=== PATIENT | male | born 1945 | race Caucasian/White ===

== ENCOUNTER 2020-10-04 11:08 | Outpatient (NON) | payer MEDICARE, SELFPAY ==
[2020-10-04 23:40] LABS: SARS-CoV-2 RNA PCR Negative
== END 2020-10-04 11:09 ==
PROVIDERS: PCP Family Medicine; Visit Provider Physician Assistant Medical
DX: R19.7 Diarrhea, unspecified (principal); R68.83 Chills (without fever); Z20.828 Contact with and (suspected) exposure to other viral communicable diseases
CPT/HCPCS: 87635; C9803; U0003

== ENCOUNTER 2020-10-16 13:46 | Outpatient (CLI) | payer MEDICARE, SELFPAY ==
--- NOTE | 2020-10-16 14:27 | ECG_ITS ---
Measurements Intervals [place] Rate: 74 P: 63 [place]: 176 QRS: 79 QRSD: 106 T: 51 QT: 361 QTc: 401 Interpretive Statements SINUS RHYTHM NORMAL ECG Electronically Signed On 10-16-2020 15:04:38 MESS COOK by Doug Crane D.O.
[2020-10-16 14:47] LABS: Basophils Absolute Auto 0.1 K/mm3 (0.0-0.1); Basophils Percent Auto 0.9 % (0.2-1.2); Eosinophils Absolute Auto 0.3 K/mm3 (0-0.3); Eosinophils Percent Auto 5.3 % (0-4.4); Hematocrit 47.3 % (42.0-52.0); Immature Granulocyte Absolute 0.04 K/mm3 (0.00-0.031); Immature Granulocyte Percent A 0.6 % (0-0.5); Lymphocytes Absolute Auto 1.62 K/mm3 (0.9-3.2); Lymphocytes Percent Auto 25.3 % (18.3-44.2); Mean Corpuscular HGB Conc 33.8 g/dl (32-36); Mean Corpuscular Hemoglobin 31.3 pg (26-34); Mean Corpuscular Volume 92.4 fl (80-100); Mean Platelet Volume 8.5 fl (7.4-10.4); Monocytes Absolute Auto 0.6 K/mm3 (0.1-0.6); Monocytes Percent Auto 9.7 % (2.6-8.5); Neutrophils Absolute Auto 3.7 K/mm3 (1.3-6.7); Neutrophils Percent Auto 58.2 % (45.5-73.1); Platelet Count Result 286 k/mm3 (150-375); Red Blood Count 5.12 M/mm3 (4.6-6.20); Red Cell Distribution Width 12.1 % (11.5-14.5); White Blood Count 6.4 K/mm3 (4.5-10.0)
== END 2020-10-16 13:47 | disposition home or self-care (01) ==
LOC: ANHSURGERY 13:48
PROVIDERS: PCP Family Medicine; Visit Provider Orthopaedic Surgery
DX: Z01.818 Encounter for other preprocedural examination (principal); M17.12 Unilateral primary osteoarthritis, left knee
CPT/HCPCS: 36415; 85025; 93005

== ENCOUNTER 2020-10-21 02:08 | Outpatient (CLI) | payer MEDICARE, SELFPAY ==
[2020-10-21 19:32] LABS: SARS-CoV-2 RNA PCR Negative
== END 2020-10-21 02:09 | disposition home or self-care (01) ==
LOC: ANHCOVIDDT 02:08
PROVIDERS: PCP Family Medicine; Visit Provider Orthopaedic Surgery
DX: Z01.812 Encounter for preprocedural laboratory examination (principal); Z20.822 Contact with and (suspected) exposure to COVID-19
CPT/HCPCS: C9803; U0003

== ENCOUNTER 2020-10-24 00:31 | Day surgery (SDC) | payer MEDICARE, SELFPAY ==
[2020-10-16 14:27] VITALS: BP 169/83; PULSE 79; RESP 16; TEMP 36.7; O2SAT 100; BMI 25.9
[2020-10-24] VITALS (9 sets, daily range): BP systolic 106–168; BP diastolic 53–98; PULSE 70–103; RESP 10–20; TEMP 36.6–36.8; O2SAT 95–100
--- NOTE | ~2020-10-24 | XR_ITS ---
EXAMINATION: XR knee LT 2V DATE: 10/24/2020 13:51 INDICATION: Left knee medial compartment arthroplasty. Postop. TECHNIQUE: 2 views of left knee were obtained. COMPARISON: Left knee radiographs 06/09/2020 FINDINGS: There is a medial compartment arthroplasty in near-anatomic alignment. No fracture. There a re tiny osteophytes in the lateral and patellofemoral compartments. There is gas in the knee joint an d soft tissues, consistent with recent surgery. IMPRESSION: 1. Medial compartment arthroplasty in near-anatomic alignment. 2. Mild osteoarthritis of the lateral and patellofemoral compartments. Reviewed, dictated and finalized at location A. RNET MARKETING COORDINATOR
[2020-10-24] MEDS: ACETAMINOPHEN 500 MG TABLET 1000 MG PO (10:31)
[2020-10-24] MEDS: LACTATED RINGERS 1,000 ML 30 ML IV CONT ×2 (10:31→13:38)
--- NOTE | 2020-10-24 10:37 | WPDANESEPPF ---
Anes - Initial Pre Proc Eval Procedure: Operation Date: 10/24/20 12:00 Proposed Procedures p Left Partial Knee Arthroplasty - Micah Nguyen MD Date/Time: 10/24/20 10:37 Surgeon: Micah Nguyen MD Pre Op Diagnosis: Primary OA Left Knee Patient Data Age: 75 Gender: M Height: 6 ft Weight: 84.4 kg Last Vital Signs Temp 36.8 C 10/24/20 10:11 Pulse 77 10/24/20 10:11 Resp 16 10/24/20 10:11 BP 168/98 H 10/24/20 10:11 Pulse Ox 98 10/24/20 10:11 Allergies Allergy/AdvReac Type Severity Reaction Status Date / Time No Known Allergies Allergy Verified 10/24/20 10:07 Home Medications Medication Instructions Recorded Confirmed Type finasteride 5 mg tablet 5 mg PO DAILY #90 tablet 12/20/19 10/24/20 Rx levothyroxine 50 mcg tablet 50 mcg PO DAILY #90 tablet 12/20/19 10/24/20 Rx tamsulosin 0.4 mg capsule 0.4 mg PO DAILY #90 cap 12/20/19 10/24/20 Rx xkiksjlo-beu-ekkta-vit K-lycop 1 tablet PO DAILY 10/16/20 10/24/20 History [Men's 50 Plus Multivitamin] Patient hx anesthesia problems: none Family hx anesthesia problems: none PMFSH Past Medical History Medical History Benign prostatic hyperplasia with nocturia Hepatitis C antibody test negative (12/21/16) Hernia (~2009) Hypercholesterolemia Hypothyroidism Osteoarthritis of both knees Prediabetes Prehypertension Stage 3 chronic kidney disease Surgical History Surgical History History of appendectomy (~1984) Family History Family History Mother Depression Family history of Parkinson's disease Patient's mother is , Onset Age: 82 Father Patient's father is , Onset Age: 83 Other No family history of cardiovascular disease Social History Social History Smoking status: Never smoker Smoking end date: 10/13/70 Alcohol intake: never Living arrangements: with family Spiritual care concerns: No Anes - Eval Final PreProcedure Day of Procedure 10/24/20 10:37 Patient weight: normal Heart: regular rate and rhythm Lungs: clear to auscultation Airway: Mallampati scale class 1 Neurological: alert and oriented Last oral intake: >/= 8 hours ASA classification: II Emergent: no Anesthetic plan: proceed Anesthesia type and monitoring: general ETT and standard monitoring Informed Consent: The patient's anesthetic plan and its attendant risks and benefits were discussed with the patient/family/POA. Questions were solicited and answers provided to the satisfaction of the patient/family/POA.
--- NOTE | 2020-10-24 11:05 | WPDHPUPDATE1 ---
History and Physical Update Update Date/Time: 10/24/20 11:05 History and Physical has been reviewed, including an updated exam of the patient. There are NO changes in the patient's condition. Risks, benefits, and alternatives have been discussed and questions answered. Patient agrees to proceed with procedure.
[2020-10-24] MEDS: TRANEXAMIC ACID 1,000MG/ISO100 1,000 MG/100 ML BAG 200 MG IVPB (11:25)
[2020-10-24] MEDS: ceFAZolin 2 GM/D5W 50 ML 2 GM/50 ML BAG IVPB (11:39)
--- NOTE | 2020-10-24 16:31 | P.OP_ITS ---
Procedure Note - Detailed Date of procedure: 10/24/20 Pre-op diagnosis: Primary OA Left Knee Post-op diagnosis: same Procedure performed: Partial knee arthroplasty, medial compartment. Description of procedure: Large stature. Severe wear in the medial compartment. ACL and lateral compartment intact. Standard bony resections. Minus 2 distal femoral cutting block. Implants: [employer] PKR X3 system tibial insert size #6, 8 mm thickness, femoral component size 5. Tibial base tibial base plate size 6. Anesthesia: GETA and regional (subsartorial block.) Surgeon: Micah Nguyen MD Estimated blood loss (mL): 50 Drains: No Complications: None Findings: Physician judicial administrative assistant, Ann-Marie Diaz PA-C, required for surgery; including patient positioning, draping, tissue retraction, maintaining instrument position, cement removal, wound closure, and dressing placement. Operative details: The patient was given a general anesthetic. Preoperative antibiotics were given. The knee was prepped and draped in the usual sterile fashion. A longitudinal incision was created along the medial aspect of the patellar tendon. A minimally invasive optimized mid vastus approach was complet ed. No medial release was taken. The external alignment guide was used to cut the tibia with anatomic posterior slope. A 4 millimeter resection was taken. The spacer block technique was utilized to measure flexion and extension gaps after the osteophytes were removed. The difference was used to calculate the distal resection. The distal cutting block was utilized to cut the distal femur. The AP and chamfer block was utilized for this last cuts. The femur and tibia were sized. Range of motion and gap balancing was assessed. This was tested with the 1.5 millimeter spacer. The bony surfaces were cleaned with lavaged. Lug holes were drilled. The real components were cemented into position. Excess cement was carefully removed. The tourniquet was released. Meticulous hemostasis was maintained. The wound was closed with interrupted 1 Vicryl suture followed by a running 0 Quill suture and 2-0 Quill suture. Steri-Strips are placed in the skin the patient was extubated and brought to recovery room in stable condition. There were no complications.
--- NOTE | 2020-10-24 16:35 | SUR.PHASEII ---
1545 - Ignacia PT at chair side with training
== END 2020-10-24 16:20 | disposition home or self-care (01) ==
PROVIDERS: PCP Family Medicine; Visit Provider Orthopaedic Surgery
PROC: (CPT 27446; principal; 2020-10-24 12:00)
DX: M17.12 Unilateral primary osteoarthritis, left knee (principal); N40.1 Benign prostatic hyperplasia with lower urinary tract symptoms; R35.1 Nocturia; E78.00 Pure hypercholesterolemia, unspecified; E03.9 Hypothyroidism, unspecified; N18.30 Chronic kidney disease, stage 3 unspecified; R73.03 Prediabetes
CPT/HCPCS: 27446; 36415; 73560; 85025; 93005; 97110; 97161; A9270; C1713; C1776; C9803; J0171; J0330; J0690; J1100; J1170; J1885; J2250; J2270; J2370; J2405; J2704; J2795; J3010; J7120; U0003

== ENCOUNTER 2020-12-13 08:00 | Outpatient (CLI) | payer MEDICARE, SELFPAY | END 2020-12-13 08:01 | disposition home or self-care (01) | PROVIDERS: PCP Family Medicine | DX: Z23 Encounter for immunization (principal) | CPT/HCPCS: 0001A; 91300 ==

== ENCOUNTER 2021-01-03 08:09 | Outpatient (CLI) | payer MEDICARE, SELFPAY | END 2021-01-03 08:10 | disposition home or self-care (01) | LOC: ANHCOVIDVC 08:09 | PROVIDERS: PCP Family Medicine | DX: Z23 Encounter for immunization (principal) | CPT/HCPCS: 0002A; 91300 ==

== ENCOUNTER → 2021-07-05 01:47 | Outpatient (CLI) | payer MEDICARE, SELFPAY ==
[2021-07-05 17:06] LABS: SARS-CoV-2 RNA PCR Negative
== END ==
PROVIDERS: PCP Family Medicine; Visit Provider Family Medicine
DX: Z20.822 Contact with and (suspected) exposure to COVID-19 (principal)
CPT/HCPCS: C9803; U0003; U0005

== ENCOUNTER → 2021-09-13 04:08 | Outpatient (CLI) | payer MEDICARE, SELFPAY ==
[2021-09-13 17:37] LABS: SARS-CoV-2 RNA PCR Negative
== END ==
PROVIDERS: PCP Family Medicine; Visit Provider Physician Assistant
DX: Z20.822 Contact with and (suspected) exposure to COVID-19 (principal)
CPT/HCPCS: C9803; U0003; U0005

== ENCOUNTER 2022-03-25 08:37 | Outpatient (CLI) | payer MEDICARE, SELFPAY ==
--- NOTE | ~2022-03-25 | MR_ITS ---
EXAMINATION: MR brain/brain stem wo con DATE: 03/25/2022 10:49 INDICATION: Syncope and collapse. TECHNIQUE: Magnetic resonance imaging (MRI) of the brain and brainstem was performed without intraven ous contrast. COMPARISON: None. FINDINGS: There are scattered areas of nonspecific increased T2-weighted signal intensity in the cere bral white matter. There is no intracranial hemorrhage, acute infarction, or abnormal intracranial ma ss lesion. The ventricles are normal in size. There is mucosal thickening in the paranasal sinuses. T he mastoid air cells are normal. The orbits are normal. IMPRESSION: 1. Moderate nonspecific cerebral white matter disease, which likely represents chronic small vessel i schemic disease. Reviewed, dictated and finalized at location B. IMPRESSION: 1. Moderate nonspecific cerebral white matter disease, which likely represents chronic small vessel ischemic disease.
--- NOTE | 2022-03-25 11:24 | WPDNEUROLOGY ---
Neurology EEG Report General Information Date of Study: 03/25/22
--- NOTE | 2022-03-25 11:27 | WPDNEUROLOGY ---
Neurology EEG Report General Information Date of Study: 03/25/22 IMPRESSION discard
--- NOTE | 2022-03-25 11:42 | P.NEURO_ITS ---
Neurology EEG Report General Information Date of Study: 03/25/22 TEST EEG DIAGNOSIS syncope and collapse CONDITION OF RECORDING awake drowsy and sleep EEG NUMBER [id number] CLINICAL HISTORY patient reports he had 1 episode of losing consciousness. No warning sign before and felt fine afterwards. EEG DESCRIPTION basic resting occipital frequency consists of large amount of well-organized medium voltage 8 to 9 hertz per 2nd alpha admixed with minimal amount of low- voltage 15 to 18 hertz per 2nd beta. During drowsiness, low-voltage beta activity seen diffusely admixed with waxing and waning posterior alpha rhythm. Bilateral symmetrical sleep activity seen during sleep. Hyperventilation not done. Photic stimulation produced normal drive. Non paroxysmal. Nonfocal. Nonlateralizing. IMPRESSION Normal
== END 2022-03-25 08:38 | disposition home or self-care (01) ==
PROVIDERS: PCP Family Medicine; Visit Provider Family Medicine
DX: R55 Syncope and collapse (principal); R90.82 White matter disease, unspecified
CPT/HCPCS: 70551; 95816

== ENCOUNTER → 2022-06-21 02:14 | Outpatient (CLI) | payer MEDICARE, SELFPAY ==
[2022-06-21 10:36] LABS: SARS-CoV-2 RNA PCR Positive
== END ==
PROVIDERS: PCP Family Medicine; Visit Provider Family Medicine
DX: U07.1 COVID-19 (principal)
CPT/HCPCS: C9803; U0003; U0005

== ENCOUNTER 2023-06-12 11:54 | Outpatient (CLI) | payer MEDICARE, SELFPAY ==
--- NOTE | 2023-06-12 12:44 | ECG_ITS ---
Measurements Intervals [place] Rate: 80 P: 64 [place]: 191 QRS: 72 QRSD: 105 T: 45 QT: 364 QTc: 420 Interpretive Statements SINUS RHYTHM WITH OCCASIONAL VENTRICULAR PREMATURE COMPLEXES OTHERWISE UNREMARKABLE ECG COMPARED TO ECG 10/16/2020 15:00:59 PVC IS NOTED Electronically Signed On 06-12-2023 14:38:45 CDT by Del Garcias M.D.
[2023-06-12 13:23] LABS: Basophils Absolute Auto 0.1 K/mm3 (0.0-0.1); Eosinophils Absolute Auto 0.5 K/mm3 (0-0.3); Eosinophils Percent Auto 6.6 % (0-4.4); Hematocrit 47.8 % (42.0-52.0); Hemoglobin 15.8 g/dL (14.0-18.0); Immature Granulocyte Absolute 0.02 K/mm3 (0.00-0.031); Immature Granulocyte Percent A 0.3 % (0-0.5); Lymphocytes Absolute Auto 2.17 K/mm3 (0.9-3.2); Lymphocytes Percent Auto 30.5 % (18.3-44.2); Mean Corpuscular HGB Conc 33.1 g/dl (32-36); Mean Corpuscular Hemoglobin 30.1 pg (26-34); Monocytes Absolute Auto 0.7 K/mm3 (0.1-0.6); Monocytes Percent Auto 9.4 % (2.6-8.5); Neutrophils Absolute Auto 3.7 K/mm3 (1.3-6.7); Neutrophils Percent Auto 52.2 % (45.5-73.1); Platelet Count Result 231 k/mm3 (150-375); Red Blood Count 5.25 M/mm3 (4.6-6.20); Red Cell Distribution Width 12.1 % (11.5-14.5); White Blood Count 7.1 K/mm3 (4.5-10.0)
[2023-06-12 13:42] LABS: Anion Gap 10 mmol/L (8-16); Blood Urea Nitrogen 21 mg/dL (9-20); Calcium 9.2 mg/dL (8.4-10.2); Carbon Dioxide 23 mmol/L (22-30); Chloride 103 mmol/L (98-107); Estimated Glomerular Filt Rate 59; Glucose 92 mg/dL (65-110); Potassium 4.2 mmol/L (3.4-5.0); Sodium 136 mmol/L (137-145)
== END 2023-06-12 11:55 | disposition home or self-care (01) ==
LOC: ANHSURGERY 11:58
PROVIDERS: Anesthesiology; PCP Family Medicine; Visit Provider Orthopaedic Surgery
DX: Z01.812 Encounter for preprocedural laboratory examination (principal); Z01.810 Encounter for preprocedural cardiovascular examination; M17.11 Unilateral primary osteoarthritis, right knee; R73.03 Prediabetes
CPT/HCPCS: 36415; 80048; 85025; 93005

== ENCOUNTER 2023-07-11 01:09 | Day surgery (SDC) | payer MEDICARE, SELFPAY ==
[2023-06-12 12:02] VITALS: BMI 25.7
--- NOTE | 2023-06-12 12:17 | PC.NURSE ---
Addendum entered by Vickie Barnett RN 06/12/23 12:36: LAST DOSE 07/07/23 NAPROXEN Original Note: Report to the Outpatient Waiting Room, entrance under the green pavilion located off [facility], at time __1000 on date __07/11/23 . Planned Procedure Time: __1200 . Time changes happen often and if your time is changed the preop area will call you the afternoon before. - You and your visitor will be asked to self-screen and do not enter if you have any COVID symptoms. - A mask is optional within the hospital at this time. Patients may have clear liquids (water, carbonated beverages, clear teas, apple juice) until 3 hours prior to surgery with a maximum of 20 ounces. - No food from midnight until time of surgery - Infants may have breast milk until 4 hours before surgery, infant formula 6 hours prior to surgery. - Children will be allowed to drink immediately following surgery. If applicable, please bring a bottle or sippy cup to assist with drinking. Juice, water, soda, and popsicles are readily available. For infants on formula, please bring formula the day of surgery. Pacifiers are allowed. Take the following medications with a SIP of water the morning of surgery: ___LEVOTHYROXINE DO NOT STOP ANY OF YOUR OTHER PRESCRIPTION MEDICATIONS PRIOR TO SURGERY ?EXCEPT THE FOLLOWING Medications to discontinue per physician ____HOLD_NAPROXEN 7 DAYS PRE OP PER DR VEGA. LAST DOSE __07/11/23 TOTAL JOINT CLASS 07/02/23 AT 10 AM Please no make-up, nail yoruba, hairspray, perfume, deodorant, or body powder the day of surgery. No jewelry (including any body piercings) or valuables the day of surgery, leave them at home. Please take a shower or bath the night before, or the morning of, surgery with an antibacterial soap. Wear comfortable, loose fitting clothing. Children are encouraged to wear pajamas. - Jewelry must be removed prior to entering the operating room. Rings and piercings that are not removed may be cut off. - The hospital will not accept responsibility for valuables. - Please leave all valuables, including medications, at home the day of surgery. If you are going home after surgery, a licensed city bus driver must drive you home. - NO public transportation without another adult if you receive anesthesia. - We recommend that an adult stay with you for 24 hours following discharge. - We also recommend that you do not drive, make important decision, drink alcoholic beverages, or take any drugs that were not prescribed by your health care provider for at least 24 hours after your discharge time. Follow any additional instructions given to you from your surgeon. If you or anyone in your household have experienced Covid symptoms in the past week, please notify your surgeon or the nurse liaison at the phone number below for possible testing. VERBAL AND WRITTEN instructions given to _PATIENT and asked if any additional questions and then verbalized understanding. Patient advised to call surgeon office or pre surgery nurse liaison [phone] if any additional questions.
[2023-06-12 12:41] VITALS: BP 134/85; PULSE 84; RESP 18; TEMP 36.8; O2SAT 97
[2023-07-11] VITALS (8 sets, daily range): BP systolic 99–148; BP diastolic 52–91; PULSE 75–93; RESP 12–19; TEMP 36.3–36.7; O2SAT 97–100
--- NOTE | ~2023-07-11 | XR_ITS ---
EXAMINATION: [id number] DATE: 07/11/2023 14:43 CDT INDICATION: Right partial knee arthroplasty TECHNIQUE: 2 views right knee FINDINGS: There is a right medial unicompartmental knee arthroplasty in expected position. Subcutane ous gas with fluid and air in the joint are consistent with recent surgery. No evidence of periprosth etic fracture. IMPRESSION: 1. Recent right medial unicompartmental knee arthroplasty. Reviewed, dictated and finalized at location B.
[2023-07-11] MEDS: ACETAMINOPHEN 500 MG TABLET 1000 MG PO (10:45)
[2023-07-11] MEDS: LACTATED RINGERS 1,000 ML 30 ML IV CONT ×2 (10:58→14:16)
[2023-07-11 11:03] LABS: Glucose Point of Care 102 mg/dl (65-105)
--- NOTE | 2023-07-11 11:24 | WPDANESEPPF ---
Anes - Initial Pre Proc Eval Procedure: Operation Date: 07/11/23 12:00 Proposed Procedures p Right Partial Knee Arthroplasty - Micah Nguyen MD Date/Time: 07/11/23 11:24 Surgeon: Micah Nguyen MD Pre Op Diagnosis: right knee arthritis Patient Data Age: 78 Gender: M Height: 1.83 m Weight: 84.4 kg Last Vital Signs Temp 36.7 C 07/11/23 11:19 Pulse 75 07/11/23 11:19 Resp 16 07/11/23 11:19 BP 143/82 H 07/11/23 11:19 Pulse Ox 99 07/11/23 11:19 O2 Del Method Room Air 07/11/23 11:19 Allergies Allergy/AdvReac Type Severity Reaction Status Date / Time No Known Allergies Allergy Verified 07/11/23 10:44 Home Medications Medication Instructions Recorded Confirmed Type levothyroxine 75 mcg tablet 75 mcg PO DAILY #90 tabs 03/20/23 07/11/23 Rx (Synthroid) metformin 500 mg tablet,extended 500 mg PO DAILY #90 tabs 03/20/23 07/11/23 Rx release 24 hr finasteride 5 mg tablet See Rx Instructions .Route 04/25/23 07/11/23 Rx .COMPLEX #100 tabs tamsulosin 0.4 mg capsule 0.4 mg PO DAILY #90 caps 05/08/23 07/11/23 Rx Laboratory Tests 07/11/23 11:00 POC Capillary Glucose 102 mg/dl (65-105) Patient hx anesthesia problems: none Family hx anesthesia problems: none Results Review: All pre-operative results and documents have been reviewed as part of the pre-operative evaluation. [facility] Past Medical History Medical History Benign prostatic hyperplasia with nocturia Cataract COVID-19 (~12/21/21) Deviated nasal septum Enlarged prostate without lower urinary tract symptoms (luts) Hepatitis C antibody test negative (12/21/16) Hernia (~2009) Hypercholesterolemia Hypothyroidism Nocturia Osteoarthritis of both knees Prediabetes Prehypertension Seborrheic keratosis Stage 3 chronic kidney disease Surgical History Surgical History History of appendectomy (~1984) History of partial knee replacement (~10/24/20) Lt Family History Family History Mother Depression Family history of Parkinson's disease Patient's mother is , Onset Age: 82 Father Patient's father is , Onset Age: 83 Other No family history of cardiovascular disease Social History Social History Smoking packs per day: 0.5 Smoking cigarettes per day: 10.0 Years smoked: 1 Smoking pack-years: 0.50 Smoking status: Former smoker Tobacco type: cigarettes Smoking end date: 10/13/65 Alcohol intake: never Lack of Transportation: No Lack of Food: Never True Current Housing: I Have Housing Concerned About Future Housing: No Difficulty Paying Gas/Electric Bills: No Difficulty Paying for Meds: No Currently Unemployed: No Education: Bachelor's Degree Difficulty w/ Childcare or Family Care: No Living arrangements: with family Spiritual care concerns: No Anes - Eval Final PreProcedure Day of Procedure 07/11/23 11:24 Patient weight: normal Heart: regular rate and rhythm Lungs: clear to auscultation Airway: Mallampati scale class 1 Neurological: alert and oriented Last oral intake: >/= 8 hours ASA classification: II Emergent: no Anesthetic plan: proceed Anesthesia type and monitoring: general LMA and standard monitoring Results Review: All pre-operative results and documents have been reviewed as part of the pre-operative evaluation. Informed Consent: The patient's anesthetic plan and its attendant risks and benefits were discussed with the patient/family/POA. Questions were solicited and answers provided to the satisfaction of the patient/family/POA.
[2023-07-11] MEDS: TRANEXAMIC ACID 1,000MG/ISO100 1,000 MG/100 ML BAG 200 MG IVPB (11:45)
--- NOTE | 2023-07-11 12:06 | WPDHPUPDATE1 ---
History and Physical Update Update Date/Time: 07/11/23 12:06 History and Physical has been reviewed, including an updated exam of the patient. There are NO changes in the patient's condition. Risks, benefits, and alternatives have been discussed and questions answered. Patient agrees to proceed with procedure.
[2023-07-11] MEDS: ceFAZolin 2 GM/D5W 50 ML 2 GM/50 ML BAG IVPB (12:34)
--- NOTE | 2023-07-11 14:22 | P.OP_ITS ---
Procedure Note - Detailed Date of Procedure 07/11/23 Pre-op Diagnosis right knee arthritis Post-op Diagnosis Same Procedure Performed Partial knee arthroplasty, right knee, medial compartment. Surgeon Micah Nguyen MD Door Frame Assembler Machine Ann-Marie Jaime PA-C Anesthesia General Findings Severe medial wear. No other abnormal findings. Minus two distal femoral cutting block. Description of Procedure The patient was given a general anesthetic. Preoperative antibiotics were given. The knee was prepped and draped in the usual sterile fashion. A longitudinal incision was created along the medial aspect of the patellar tendon. A minimally invasive optimized mid vastus approach was completed. No medial release was taken. The external alignment guide was used to cut the tibia with anatomic posterior slope. A 4 millimeter resection was taken. The spacer block technique was utilized to measure flexion and extension gaps after the osteophytes were removed. The difference was used to calculate the distal resection. The distal cutting block was utilized to cut the distal femur. The AP and chamfer block was utilized for this last cuts. The femur and tibia were sized. Range of motion and gap balancing was assessed. This was tested with the 1.5 millimeter spacer. The bony surfaces were cleaned with lavaged. Lug holes were drilled. The real components were cemented into position. Excess cement was carefully removed. The tourniquet was released. Meticulous hemostasis was maintained. The wound was closed with interrupted 1 Vicryl suture followed by a running 0 Quill suture and 2-0 Quill suture. Steri-Strips are placed in the skin the patient was extubated and brought to recovery room in stable condition. There were no complications. Physician assistant attorney general, Ann-Marie Jaime PA-C, required for surgery; including patient positioning, draping, tissue retraction, maintaining instrument position, cement removal, wound closure, and dressing placement. Implants [employer] PKR system femur size 5, tibia size 4, 10mm polyethylene insert . One batch Simplex antibiotic cement. Estimated Blood Loss 20 Tourniquet Time 48 Drains No Complications No immediate complications Condition Stable Disposition PACU [facility] Billing Surgery - Charge Forward: Surgery Billing
[2023-07-11 14:42] LABS: Glucose Point of Care 111 mg/dl (65-105)
== END 2023-07-11 16:52 | disposition home or self-care (01) ==
PROVIDERS: PCP Family Medicine; Visit Provider Orthopaedic Surgery
PROC: (CPT 27446; principal; 2023-07-11 12:00)
DX: M17.11 Unilateral primary osteoarthritis, right knee (principal); I12.9 Hypertensive chronic kidney disease with stage 1 through stage 4 chronic kidney disease, or unspecified chronic kidney disease; N18.30 Chronic kidney disease, stage 3 unspecified; D29.1 Benign neoplasm of prostate; E78.00 Pure hypercholesterolemia, unspecified; E03.9 Hypothyroidism, unspecified; R73.03 Prediabetes; Z96.652 Presence of left artificial knee joint; Z87.891 Personal history of nicotine dependence; Z79.84 Long term (current) use of oral hypoglycemic drugs; Z79.1 Long term (current) use of non-steroidal anti-inflammatories (NSAID)
CPT/HCPCS: 27446; 36415; 73560; 80048; 82948; 85025; 93005; 97110; 97161; 97165; 97530; A9270; C1713; C1776; J0171; J0690; J1100; J1170; J1885; J2250; J2270; J2405; J2704; J2795; J3010; J7120

== ENCOUNTER 2023-09-02 08:45 | Outpatient (RCR) | payer MEDICARE, SELFPAY ==
--- NOTE | 2023-07-18 09:23 | OPREHPOC ---
Outpatient Therapy Plan of Care This is a Multidisciplinary Plan of Care that may contain components documented by all disciplines (PT, OT, and ST.) PT Problem 1 PT Problem #1 Knowledge Deficit PT Goal 1 Goal [place] with HEP Target Visit 4 PT Problem 2 PT Problem #2 Pain PT Goal 1 Goal Report no pain greater than 2/10 with transfer activity sit to stand Target Visit 8 PT Problem 3 PT Problem #3 Edema PT Goal 1 Goal Patient will demonstrate 2+cm reduction in joint line girth indicating edema reduction and soft tissue healing to improve knee mobility Target Visit 8 PT Problem 4 PT Problem #4 Impaired Range of Motion PT Goal 1 Goal Patient will achieve terminal R knee extension for full terminal stance of gait Target Visit 8 PT Goal 2 Goal Patient will improve R knee flexion ROM to 120 degrees to assist with stairs and squatting activity Target Visit 8 PT Problem 5 PT Problem #5 Impaired Strength PT Goal 1 Goal Patient will improve R knee extension strength to 5/5 to improve gross knee stability with walking and stair activity
--- NOTE | 2023-07-18 09:23 | PTOPEVAL1 ---
Assessment and note entered by Richard Lobo, PT Evaluation Information Assessment Status Evaluation Diagnosis Right Total Knee Arthroplasty, knee pain, altered gait Onset 07/11/23 Subjective Information Reports that overall he is doing well. He is modified independent with the walker and weaning off of pain medicine. He is having a little trouble sleeping but has been taking pain medicine to help. He has 3 steps to get into home and can maneuver fairly well. Reported Pain Level Pain Score 6: Self Report Assessment PT Clinical Summary Patient presents with typical signs ans symptoms of post operative knee arthroplasty. Has notable edema, weakness, ROM loss, and altered gait. Patient will benefit from skilled therapy to address these deficits for full functional return and christian of gait. Plan of Care Interventions Electrical Stimulation,Gait Training,Hot Pack/Cold Pack,Manual Therapy,Neuro Re-education,Patient/ Caregiver Education,Therapeutic Activities, Therapeutic Exercise PT Services Indicated Yes Treatment Frequency and 2x/week for 4 weeks Duration These treatments will address the objective and functional deficits as defined above. The patient will be advanced safely and appropriately in order for the patient to progress towards his/her prior level of function. Additional exercises will be introduced and as well as a comprehensive home exercise program upon discharge, if needed, ?to ensure carryover of functional gains achieved in the clinic. This treatment plan has been reviewed and agreement upon by the patient.
--- NOTE | 2023-09-02 15:03 | PTOPDC ---
Assessment and note entered by Ginny Adkins, PT Assessment Status Discharge Diagnosis Right Total Knee Arthroplasty, knee pain, altered gait Onset 07/11/23 Subjective Information Pt reports cont to have discomfort in the inside of knee at night when sleeping. Can go till 2-3 am but then needs to take a tylenol. Reports ortho has released him from therapy and will follow up in a year for the partial. Reported Pain Level Pain Score 1: Self Report Assessment PT Clinical Summary Pt has attended therapy consistently for right partial knee replacement. He has since met all therapy goals, is ambulating approporiately without AD, has returned to upright bicycle activity on stationary resident athletic trainer (due to weather), has strength and ROM WNL. Pt has been release by orthopeadic surgeon as well. Thus patient is being discharged at this time for completion of therapy .
== END 2023-09-03 09:39 | disposition home or self-care (01) ==
LOC: ANHHIPT 08:45
PROVIDERS: PCP Family Medicine; Visit Provider Orthopaedic Surgery
DX: Z47.1 Aftercare following joint replacement surgery (principal); Z96.651 Presence of right artificial knee joint
CPT/HCPCS: 97014; 97110; 97112; 97116; 97140; 97161; 97530; 97750; G0283

== ENCOUNTER 2024-09-07 09:20 | Outpatient (CLI) | payer MEDICARE, SELFPAY ==
--- NOTE | 2024-09-27 12:35 | WPDHOMESLEEP ---
Sleep Study - Home Unattended Date of Study: 09/07/24 Ordering Provider: Del Jones MD Interpreting Provider: Sharon Velasco DO Home Sleep Study Type: Watch PAT Height: 1.83 m Weight: 86.183 kg Body Mass Index: 25.7 Neck Circumference (inches): 15.5 Anchor: 12 Reason for Sleep Study Daytime hypersomnia Sleep History The patient is a 79-year-old male that had a sleep study ordered by his ENT physician for evaluation of sleep apnea. The patient admits to snoring loudly and excessive daytime sleepiness. He admits to stopping breathing while asleep. He denies choking or gasping at night. He admits to having trouble breathing on his back. He denies morning headaches. He denies having a dry or sore mouth/ throat in the morning. He admits to nocturnal heartburn. He admits to nocturia. He denies having trouble falling asleep or staying asleep. He denies having trouble returning to sleep if he wakes up throughout the night. He denies hypnotic or sedative use. He admits to feeling tired or sleepy during the day. He admits to feeling unrefreshed in the morning. He does have the urge to fall asleep during the day. He denies feeling drowsy while driving. He denies sleep paralysis, cataplexy and hypnagogic / hypnopompic hallucinations. He denies clenching or grinding his teeth. He denies kicking or jerking his legs excessively. He denies having a restless feeling in his legs. He goes to bed at 10:00 p.m. on both weekdays and weekends. It takes him 15 minutes to fall asleep. He typically gets 7 hours 45 minutes of sleep per night. He does take planned naps. His sleep is somewhat restorative on his days off. He denies dream enactment behavior. He denies sleep walking. He consumes 1-2 cups of caffeinated beverage per day. He denies tobacco and alcohol use. He exercises 3-4 nights per week. PMFSH Past Medical History Medical History Cataract Enlarged prostate without lower urinary tract symptoms (luts) Seborrheic keratosis Nocturia Deviated nasal septum COVID-19 (~12/21/21) Hernia (~2009) Osteoarthritis of both knees Hypothyroidism Hepatitis C antibody test negative (12/21/16) Benign prostatic hyperplasia with nocturia Hypercholesterolemia Prediabetes Prehypertension Stage 3 chronic kidney disease Surgical History Surgical History H/O cataract removal with insertion of prosthetic lens History of partial knee replacement (~10/24/20) Lt and Rt 07/11/2023 History of appendectomy (~1984) Family History Family History Mother Depression Family history of Parkinson's disease Patient's mother is , Onset Age: 82 Father Patient's father is , Onset Age: 83 Other No family history of cardiovascular disease Social History Social History Smoking packs per day: 0.5 Smoking cigarettes per day: 10.0 Years smoked: 1 Smoking pack-years: 0.50 Smoking status: Former smoker Tobacco type: cigarettes Smoking end date: 10/13/65 Alcohol intake: never Substance use: never Substance use type: does not use Do You Feel Safe in your Home?: Yes Lack of Transportation: No Lack of Food: Never True Current Housing: I Have Housing Concerned About Future Housing: No Difficulty Paying Gas/Electric Bills: No Difficulty Paying for Meds: No Currently Unemployed: No Education: Bachelor's Degree Difficulty w/ Childcare or Family Care: No Living arrangements: with family Spiritual care concerns: No Medications Home Medications ?Medication ?Instructions ?Recorded ?Confirmed ?Type levothyroxine 75 mcg tablet 75 mcg PO DAILY #90 tabs 05/25/24 08/31/24 Rx (Synthroid) metformin 500 mg tablet,extended 500 mg PO DAILY #90 tabs 05/25/24 08/31/24 Rx release 24 hr tamsulosin 0.4 mg capsule 0.4 mg PO DAILY #90 caps 06/21/24 08/31/24 Rx lisinopril 10 mg tablet 10 mg PO DAILY #90 tabs 06/24/24 08/31/24 Rx fluticasone propionate 50 2 spray intranasal DAILY #16 grams 07/28/24 08/31/24 Rx mcg/actuation nasal spray,suspension (Flonase Allergy Relief) finasteride 5 mg tablet See Rx Instructions .Route 08/20/24 08/31/24 Rx .COMPLEX #90 tabs amoxicillin 500 mg-potassium 1 tablet PO Q12H chronic ethmoid 08/31/24 08/31/24 Rx clavulanate 125 mg tablet sinusitis #20 tabs (Augmentin) prednisone 20 mg tablet 20 mg PO DAILY chronic ethmoid 08/31/24 08/31/24 Rx sinusitis #10 tabs Sleep Procedure The sleep study was completed using [employer]T a technically adequate device with seven channels: peripheral arterial tone, actigraphy, body position, snore, respiratory movement, pulse oximetry, sleep staging, and heart rate. Prior to using the device, the patient received verbal and written instructions for its application and was provided with the help desk phone number for additional telephonic instruction with 24-hour availability of qualified personnel to answer questions. The study was scored using CMS guidelines. Sleep Architecture The total recording time is 7 hrs, 50 min. The total sleep time is 6 hrs, 57 min. Sleep latency is 17 minutes. REM latency is 71 minutes. The patient had 5 episodes of waking. Sleep architecture shows 18.5% deep sleep, 46.4% light sleep, and (as % Total Sleep Time) showed NREM (Light 46.4%; Deep 18.5%), and a 35.1% stage REM. The patient spent 45.1% of total sleep time in the supine position. Sleep efficiency was 88.72. Respiratory Analysis The overall AHI (pAHI 4%:) is 9.0. The central AHI is 0.0. The AHI was 8.0 in NREM and 10.7 in REM sleep. The AHI was 15.0 in Supine and 4.0 in Non-supine sleep. Percent of Jordan Swanson respirations is 0.0. Oximetry Data The oxygen desaturation index (MARLYS 4%:) is 8.8. The mean saturation is 94%, and the lowest saturation is 82%. Time spent with saturation < 88% is 2.0 minutes. Snoring Profile Snoring average intensity is 44 dB. The patient snored above 45 decibels for 111.6 minutes, 26.7% of sleep time. Cardiac Profile The average pulse rate is 76 beats per minutes. The lowest pulse rate is 63 bpm. The highest pulse rate reported is 95 bpm. Atrial fibrillation was not detected. Premature beats occur 0.2 per minute. Assessment and Plan Assessment and Plan (1) TIFFANIE (obstructive sleep apnea): Code(s): G47.33 - Obstructive sleep apnea (adult) (pediatric) Status: Acute Assessment and Plan: The patient had an overall AHI of 9 with desaturation down to 82%. This is consistent with mild sleep apnea. Due to the patient's excessive daytime hypersomnia, he qualifies for treatment. I recommend that the patient be prescribed Resmed AutoPAP 5-15 cm H2O, CPAP mask/filters/tubing and heated humidity. This should be used with all episodes of sleep.? Compliance should be reviewed within 31-90 days of starting therapy for usage greater than 4 hours per night greater than 70% of the nights. The patient should be asked about symptoms such as?excessive daytime sleepiness, quality of sleep, decreased nocturia, increased?mental functioning such as memory, mood, and concentration. Data The data obtained during this sleep study is adequate for interpretation. Certification This sleep study has been reviewed by a board certified sleep medicine physician.
[2024-09-27 12:36] VITALS: BMI 25.7
== END 2024-09-13 09:51 | disposition home or self-care (01) ==
LOC: ANHCSM 09:28
PROVIDERS: PCP Family Medicine; Visit Provider Family Medicine
DX: G47.33 Obstructive sleep apnea (adult) (pediatric) (principal); G47.11 Idiopathic hypersomnia with long sleep time; I10 Essential (primary) hypertension
CPT/HCPCS: 95800

== ENCOUNTER 2024-09-17 09:33 | Outpatient (CLI) | payer MEDICARE, SELFPAY ==
--- NOTE | ~2024-09-17 | CT_ITS ---
EXAMINATION: CT soft tissue neck w con DATE: 09/17/2024 10:13 INDICATION: Chronic laryngitis. TECHNIQUE: Computed tomography (CT) of the neck was performed with 75 mL Omnipaque-350 intravenous co ntrast. Automated exposure control and iterative reconstruction technique were employed. The dose-filemon gth product was 594.59 mGy-cm. COMPARISON: None FINDINGS: There are likely changes of ocular lens replacement surgeries. There is mucosal thickening in the paranasal sinuses. There are no pathologically enlarged lymph nodes. There are calcifications in the palatine tonsils. The epiglottis is normal. There is severe cervical spondylosis. There is enl argement of nasopalatine duct. IMPRESSION: 1. No abscess. Reviewed, dictated and finalized at location A. DENTIAL RECYCLE DRIVER IMPRESSION: 1. No abscess.
[2024-09-17 10:08] LABS: Estimated Glomerular Filt Rate 54
== END 2024-09-17 09:34 | disposition home or self-care (01) ==
PROVIDERS: PCP Family Medicine; Visit Provider Otolaryngology
DX: J37.0 Chronic laryngitis (principal); J32.2 Chronic ethmoidal sinusitis; R05.3 Chronic cough
CPT/HCPCS: 70491; Q9967

== ENCOUNTER 2025-02-19 14:30 | Emergency (ER) | payer MEDICARE, SELFPAY ==
[2025-02-19 14:49] VITALS: BP 153/82; PULSE 87; RESP 16; TEMP 36.6; O2SAT 100
--- NOTE | 2025-02-19 15:56 | ED.GENADULT ---
HPI - General Adult General Chief complaint: Wound/Laceration Stated complaint: Cut On Lt Foot Time Seen by Provider: 02/19/25 15:56 Source: patient Mode of arrival: ambulatory Limitations: no limitations History of Present Illness HPI narrative: 80-year-old male patient presents to the [facility] with complaints of a cut to the back of the left foot about a week ago. Patient states he cut it on some lawn care machine. Patient states his last tetanus shot was in 2017. Patient states he has been putting some [id number] antibiotic ointment on it and covering it with a Band-Aid. Patient states he has only been cleaning it whenever he has been in the shower. Patient states he is prediabetic. Related Data Home Medications ?Medication ?Instructions ?Recorded ?Confirmed ?Last Taken ?Type budesonide 0.5 mg/2 mL suspension 0.5 mg irrigation 01/24/25 01/24/25 Unknown History for nebulization famotidine 20 mg tablet 20 mg PO 01/24/25 01/24/25 Unknown History omeprazole 40 mg capsule,delayed 40 mg PO 01/24/25 01/24/25 Unknown History release Allergies Allergy/AdvReac Type Severity Reaction Status Date / Time No Known Allergies Allergy Verified 02/19/25 15:48 Review of Systems Review of Systems: CONSTITUTIONAL: Denies fever, chills, or sweats. EYES: Denies visual changes, redness, or discharge. ENT: Denies rhinorrhea, congestion, sore throat, or otalgia. CARDIOVASCULAR: Denies chest pain, palpitations, or edema. RESPIRATORY: Denies cough or dyspnea. GASTROINTESTINAL: Denies abdominal pain, nausea, vomiting, or diarrhea. GENITOURINARY: Denies dysuria or hematuria. SKIN: Denies rash or itching. Positive laceration to left foot MUSCULOSKELETAL: Denies back pain, joint pain, or myalgia. NEUROLOGIC: Denies headache, numbness, or weakness. PSYCHIATRIC: Denies anxiety or depression. [facility] Past Medical History Medical History Cataract Enlarged prostate without lower urinary tract symptoms (luts) Seborrheic keratosis Nocturia Deviated nasal septum COVID-19 (~12/21/21) Hernia (~2009) Osteoarthritis of both knees Hypothyroidism Hepatitis C antibody test negative (12/21/16) Benign prostatic hyperplasia with nocturia Hypercholesterolemia Prediabetes Prehypertension Stage 3 chronic kidney disease Surgical History Surgical History H/O cataract removal with insertion of prosthetic lens History of partial knee replacement (~10/24/20) Lt and Rt 07/11/2023 History of appendectomy (~1984) Family History Family History Mother Depression Family history of Parkinson's disease Patient's mother is , Onset Age: 82 Father Patient's father is , Onset Age: 83 Other No family history of cardiovascular disease Social History Social History Social History: Caffeine-daily Smoking packs per day: 0.5 Smoking cigarettes per day: 10.0 Years smoked: 1 Smoking pack-years: 0.50 Smoking status: Former smoker Tobacco type: cigarettes Smoking end date: 10/13/65 Alcohol intake: never Substance use: never Substance use type: does not use Do You Feel Safe in your Home?: Yes Lack of Transportation: No Lack of Food: Never True Current Housing: I Have Housing Concerned About Future Housing: No Difficulty Paying Gas/Electric Bills: No Difficulty Paying for Meds: No Currently Unemployed: No Education: Bachelor's Degree Difficulty w/ Childcare or Family Care: No Living arrangements: with family Spiritual care concerns: No Comments At the time of my signature I agree with nursing past medical history, surgical, social, and family history. There is no relevant family history pertinent to the presenting complaint. Exam Narrative: GENERAL: Well-appearing, well-nourished, and in no acute distress. HEAD: Normocephalic, atraumatic. EYES: PERRLA and EOMI. ENT: Nares clear, no rhinorrhea or epistaxis. Mucous membranes moist. NECK: Supple. No lymphadenopathy CHEST: Clear to auscultation. No respiratory distress. HEART: Regular rate and rhythm. No murmur heard. Normal peripheral pulses. ABDOMEN: Soft, nontender, nondistended, normal active bowel sounds. EXTREMITIES: Normal range of motion. No edema. SKIN: Warm, dry, no rash. patient has approximately 1.5 cm linear laceration to the back of the left foot over the Achilles tendon. There is some fat exposure noted. There is some swelling and 2+ pitting edema noted to the entire left foot but there is no swelling past the left ankle. No warmth present no obvious erythema. NEURO: No focal deficits. Alert and oriented x3. Course Course Level of Care: Express Care Visit Vital Signs Vital signs: Vital Signs Temperature 36.6 C 02/19/25 14:49 Pulse Rate 87 02/19/25 14:49 Respiratory Rate 16 02/19/25 14:49 Blood Pressure 153/82 H 02/19/25 14:49 Pulse Oximetry 100 02/19/25 14:49 Temperature 36.6 C 02/19/25 14:49 Pulse Rate 87 02/19/25 14:49 Respiratory Rate 16 02/19/25 14:49 Blood Pressure 153/82 H 02/19/25 14:49 Pulse Oximetry 100 02/19/25 14:49 Vital signs reviewed. The patient has been informed that they may have pre-hypertension or Hypertension based on a BP reading in the department. I recommend that the patient call the primary care provider listed on their discharge instructions or a physician of their choice this week to arrange follow up for further evaluation of possible pre-hypertension or Hypertension Medical Decision Making MDM Narrative Medical decision making narrative: Plan of care for patient is to update his tetanus shot today. We will also provide him some topical antibiotic ointment as well as an oral antibiotic. Discussed with patient I want him to clean the wound at least twice a day with soap and water, pat dry and apply the antibiotic ointment keep covered until healed. Discussed with patient if the swelling continues to worsen and goes up the leg or the foot becomes warm inflamed or he develops fevers body aches or chills he needs to go to the ER for further evaluation. Patient can follow-up with his primary doctor as needed. Patient is aware the plan of care denies any other questions or concerns at this time. Differential Diagnosis Differential Diagnosis: Differential diagnosis: Abscess, cellulitis, hidradenitis, laceration, puncture wound. Vital Signs Vital Signs: Vital Signs Temperature 36.6 C 02/19/25 14:49 Pulse Rate 87 02/19/25 14:49 Respiratory Rate 16 02/19/25 14:49 Blood Pressure 153/82 H 02/19/25 14:49 Pulse Oximetry 100 02/19/25 14:49 Temperature 36.6 C 02/19/25 14:49 Pulse Rate 87 02/19/25 14:49 Respiratory Rate 16 02/19/25 14:49 Blood Pressure 153/82 H 02/19/25 14:49 Pulse Oximetry 100 02/19/25 14:49 Critical Care Time Critical Care Time Critical Care Time: No Discharge Plan Discharge Clinical Impression: Cellulitis Qualifiers: Site of cellulitis: extremity Site of cellulitis of extremity: lower extremity Laterality: left Qualified Code(s): L03.116 - Cellulitis of left lower limb Laceration of foot, left Qualifiers: Encounter type: initial encounter Qualified Code(s): S91.312A - Laceration without foreign body, left foot, initial encounter Patient Disposition: Home Condition: Stable Instructions: Antibiotic Form, Laceration (ED) Additional Instructions: clean wound with soap water at least 2 times daily and apply the antibiotic ointment that was prescribed to you today. Take the oral antibiotic as prescribed. Watch for worsening signs of infection including swelling that is going up the leg, redness or warmth, fevers, body aches or chills. If any of these occur please go to the ER for further evaluation and treatment. Please follow-up with your primary care medical provider as needed. Patient Language: Uzbek Prescriptions: New clindamycin HCl [Cleocin HCl] 300 mg capsule 300 mg PO TID 7 Days Qty: 21 0RF clindamycin HCl [Cleocin HCl] 150 mg capsule 150 mg PO TID 7 Days Qty: 21 0RF mupirocin [Centany] 2 % ointment 1 applic topical BID Qty: 22 0RF No Action omeprazole 40 mg capsule,delayed release(DR/EC) 40 mg PO famotidine 20 mg tablet 20 mg PO budesonide 0.5 mg/2 mL suspension for nebulization 0.5 mg irrigation azithromycin 250 mg tablet See Rx Instructions PO .COMPLEX Qty: 6 0RF Rx Instructions: For 250 mg dose pack: take 500 mg today (day 1), then 250 mg for 4 days (days 2-5) PO prednisone 50 mg tablet 50 mg PO DAILY Qty: 5 0RF doxycycline hyclate 100 mg tablet 100 mg PO DAILY Qty: 14 2RF Rx Instructions: take 1 tablet daily metformin 500 mg tablet extended release 24 hr 500 mg PO DAILY Qty: 90 1RF Rx Instructions: Take with largest meal fluticasone propionate [Flonase Allergy Relief] 50 mcg/actuation spray,suspension 2 spray intranasal DAILY Qty: 16 1RF Rx Instructions: administer into each nostril finasteride 5 mg tablet See Rx Instructions .ROUTE .COMPLEX Qty: 90 1RF Dose Instruction: TAKE 1 TABLET BY MOUTH DAILY Rx Instructions: TAKE 1 TABLET BY MOUTH DAILY (DME) CPAP See Rx Instructions .Route .MEDSUPPLY Qty: 1 0RF Rx Instructions: Resmed AutoPAP 5-15 cm H2O, CPAP mask/filters/tubing and heated humidity. tamsulosin 0.4 mg capsule See Rx Instructions .ROUTE .COMPLEX Qty: 90 3RF Dose Instruction: TAKE 1 CAPSULE BY MOUTH DAILY Rx Instructions: TAKE 1 CAPSULE BY MOUTH DAILY levothyroxine 75 mcg tablet See Rx Instructions .ROUTE .COMPLEX Qty: 90 3RF Dose Instruction: TAKE 1 TABLET BY MOUTH DAILY Rx Instructions: TAKE 1 TABLET BY MOUTH DAILY lisinopril 10 mg tablet See Rx Instructions .ROUTE .COMPLEX Qty: 90 0RF Dose Instruction: TAKE 1 TABLET BY MOUTH DAILY Rx Instructions: TAKE 1 TABLET BY MOUTH DAILY Follow-up/Referrals: Del Jones MD [Primary Care Provider] - Time of Disposition: 16:09
[2025-02-19] MEDS: TETANUS,DIPHTHERIA,AC PERTUSSIS ADULT (0.5 ML) BOOSTRIX IM (16:16)
== END 2025-02-19 16:20 | disposition home or self-care (01) ==
PROVIDERS: Emergency Provider Nurse Practitioner Family; PCP Family Medicine
DX: L03.116 Cellulitis of left lower limb (principal); S91.312A Laceration without foreign body, left foot, initial encounter; W45.8XXA Other foreign body or object entering through skin, initial encounter; Z23 Encounter for immunization; N40.1 Benign prostatic hyperplasia with lower urinary tract symptoms; N18.30 Chronic kidney disease, stage 3 unspecified; E03.9 Hypothyroidism, unspecified; E78.00 Pure hypercholesterolemia, unspecified; R73.03 Prediabetes; R03.0 Elevated blood-pressure reading, without diagnosis of hypertension; M17.0 Bilateral primary osteoarthritis of knee; Z86.16 Personal history of COVID-19; Z87.891 Personal history of nicotine dependence; Z96.653 Presence of artificial knee joint, bilateral
CPT/HCPCS: 90471; 90715; 99213; G0463

== ENCOUNTER 2025-04-08 10:26 | Emergency (ER) | payer MEDICARE, SELFPAY ==
--- NOTE | ~2025-04-08 | XR_ITS ---
XR abdomen/kub 1V Ordering provider: Frida Martinez NP History: . hematuria onset today; Lt sided flank pain x 1 wk . Comparison: None. FINDINGS: BOWEL: Nonobstructive bowel gas pattern. ORGANOMEGALY: None. SIGNIFICANT PATHOLOGIC CALCIFICATIONS: None. OTHER: No free air is seen under the diaphragm. Degenerative changes of the spine. IMPRESSION: NO ACUTE ABDOMINAL FINDINGS. Reviewed, dictated and finalized at location A.
--- NOTE | 2025-04-08 10:28 | ED.MALEGU ---
HPI - Male Genitourinary General Chief complaint: Urogenital-Male Stated complaint: Uti Symptoms Time Seen by Provider: 04/08/25 10:49 Source: patient and RN notes reviewed Mode of arrival: ambulatory Limitations: no limitations History of Present Illness HPI Narrative: 80 year old male presents with concern for dysuria, hematuria, bilateral lower back pain, bilateral testicle pain. 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 He reports malodorous stools for 3 days. He reports hematuria today. MD Complaint: dysuria Related Data Home Medications ?Medication ?Instructions ?Recorded ?Confirmed ?Last Taken ?Type budesonide 0.5 mg/2 mL suspension 0.5 mg irrigation 01/24/25 01/24/25 Unknown History for nebulization famotidine 20 mg tablet 20 mg PO 01/24/25 01/24/25 Unknown History omeprazole 40 mg capsule,delayed 40 mg PO 01/24/25 01/24/25 Unknown History release Allergies Allergy/AdvReac Type Severity Reaction Status Date / Time No Known Allergies Allergy Verified 04/08/25 10:42 Review of Systems Review of Systems: CONSTITUTIONAL: Denies malaise, chills, sweats, or fever. CARDIOVASCULAR: Denies chest pain, palpitations, or edema. RESPIRATORY: Denies cough or dyspnea. GASTROINTESTINAL: Denies abdominal pain, nausea, vomiting, diarrhea GENITOURINARY: Reports dysuria, frequency, urgency, suprapubic pressure. Denies flank pain. Reports hematuria. SKIN: Denies rash or itching. MUSCULOSKELETAL: Denies back pain or myalgia. All systems reviewed & are unremarkable except as noted in HPI and below PMFSH Past Medical History Medical History Cataract Enlarged prostate without lower urinary tract symptoms (luts) Seborrheic keratosis Nocturia Deviated nasal septum COVID-19 (~12/21/21) Hernia (~2009) Osteoarthritis of both knees Hypothyroidism Hepatitis C antibody test negative (12/21/16) Benign prostatic hyperplasia with nocturia Hypercholesterolemia Prediabetes Prehypertension Stage 3 chronic kidney disease Surgical History Surgical History H/O cataract removal with insertion of prosthetic lens History of partial knee replacement (~10/24/20) Lt and Rt 07/11/2023 History of appendectomy (~1984) Family History Family History Mother Depression Family history of Parkinson's disease Patient's mother is , Onset Age: 82 Father Patient's father is , Onset Age: 83 Other No family history of cardiovascular disease Social History Social History Social History: Caffeine-daily Smoking packs per day: 0.5 Smoking cigarettes per day: 10.0 Years smoked: 1 Smoking pack-years: 0.50 Smoking status: Former smoker Tobacco type: cigarettes Smoking end date: 10/13/65 Alcohol intake: never Substance use: never Substance use type: does not use Do You Feel Safe in your Home?: Yes Lack of Transportation: No Lack of Food: Never True Current Housing: I Have Housing Concerned About Future Housing: No Difficulty Paying Gas/Electric Bills: No Difficulty Paying for Meds: No Currently Unemployed: No Education: Bachelor's Degree Difficulty w/ Childcare or Family Care: No Living arrangements: with family Spiritual care concerns: No Comments At time of signature, agree with nursing past medical, surgical, social and family history. There is no relevant family history pertinent to the presenting complaint Exam Narrative: GENERAL: Well-appearing, well-nourished, and in no acute distress. HEAD: Normocephalic. EYES: PERRLA, conjunctivae clear. NECK: Supple. No lymphadenopathy CHEST: Clear to auscultation. No respiratory distress. HEART: Regular rate and rhythm. ABDOMEN: Soft, nontender upon palpation, nondistended, normal active bowel sounds, no palpable or pulsatile masses, no guarding. No CVA tenderness SKIN: Warm, dry, no rash. NEURO: Alert and oriented x3. PSYCH: Normal mood and affect Course Course Emergency Course: Patient's x-ray does not show any evidence of calcifications. Patient's symptoms are consistent with UTI, will treat for UTI and advised patient to follow-up with his primary care provider on Friday regarding his bowels. He is advised to go the emergency room if his symptoms worsen or do not improve. Patient is aware of diagnosis, understands and agrees to treatment plan. Anticipatory guidance given. Patient agrees to follow-up as directed and is aware of reasons to seek care at the emergency department. Portions of this record may have been created with voice recognition software Level of Care: Express Care Visit Vital Signs Vital signs: Reviewed. MDM - Male Genitourinary Imaging Data My impression: Images reviewed, interpreted by radiologist, agree, see report. Radiologist's impression: XR abdomen/kub 1V Ordering provider: Frida Martinez NP History: . hematuria onset today; Lt sided flank pain x 1 wk . Comparison: None. FINDINGS: BOWEL: Nonobstructive bowel gas pattern. ORGANOMEGALY: None. SIGNIFICANT PATHOLOGIC CALCIFICATIONS: None. OTHER: No free air is seen under the diaphragm. Degenerative changes of the spine. IMPRESSION: NO ACUTE ABDOMINAL FINDINGS. Critical Care Time Critical Care Time Critical Care Time: No Discharge Plan Discharge Clinical Impression: Urinary tract infection Patient Disposition: Home Condition: Stable Instructions: Antibiotic Form, Urinary Tract Infection in Men (ED) Additional Instructions: Your x-ray looks normal We will send a urine culture to the lab; if the culture identifies an organism that the prescribed antibiotic will not treat, you will receive a phone call from an urgent care staff member and an appropriate antibiotic will be prescribed. -Your symptoms should begin to improve within a day of starting antibiotics. But you should finish all the antibiotic pills you get. Otherwise your infection might come back. -Also recommend: increase water intake. Tylenol/ibuprofen as needed for pain or fever -Follow-up with your primary care provider if your symptoms do not improve. Seek ER visit if condition worsens with high fever, nausea, vomiting and severe back pain. Patient Language: Cook Islander Prescriptions: New ciprofloxacin HCl 500 mg tablet 500 mg PO Q12H 7 Days Qty: 14 0RF No Action mupirocin [Centany] 2 % ointment 1 applic topical BID Qty: 22 0RF omeprazole 40 mg capsule,delayed release(DR/EC) 40 mg PO famotidine 20 mg tablet 20 mg PO budesonide 0.5 mg/2 mL suspension for nebulization 0.5 mg irrigation prednisone 50 mg tablet 50 mg PO DAILY Qty: 5 0RF fluticasone propionate [Flonase Allergy Relief] 50 mcg/actuation spray,suspension 2 spray intranasal DAILY Qty: 16 1RF Rx Instructions: administer into each nostril finasteride 5 mg tablet See Rx Instructions .ROUTE .COMPLEX Qty: 90 1RF Dose Instruction: TAKE 1 TABLET BY MOUTH DAILY Rx Instructions: TAKE 1 TABLET BY MOUTH DAILY (DME) CPAP See Rx Instructions .Route .MEDSUPPLY Qty: 1 0RF Rx Instructions: Resmed AutoPAP 5-15 cm H2O, CPAP mask/filters/tubing and heated humidity. tamsulosin 0.4 mg capsule See Rx Instructions .ROUTE .COMPLEX Qty: 90 3RF Dose Instruction: TAKE 1 CAPSULE BY MOUTH DAILY Rx Instructions: TAKE 1 CAPSULE BY MOUTH DAILY levothyroxine 75 mcg tablet See Rx Instructions .ROUTE .COMPLEX Qty: 90 3RF Dose Instruction: TAKE 1 TABLET BY MOUTH DAILY Rx Instructions: TAKE 1 TABLET BY MOUTH DAILY metformin 500 mg tablet extended release 24 hr 500 mg PO DAILY Qty: 90 1RF Rx Instructions: Take with largest meal lisinopril 10 mg tablet See Rx Instructions .ROUTE .COMPLEX Qty: 90 1RF Dose Instruction: TAKE 1 TABLET BY MOUTH DAILY Rx Instructions: TAKE 1 TABLET BY MOUTH DAILY Follow-up/Referrals: Del Jones MD [Primary Care Provider] - Time of Disposition: 11:23
[2025-04-08 10:37] VITALS: BP 136/84; PULSE 78; RESP 16; TEMP 36.9; O2SAT 99
[2025-04-08 10:49] LABS: EDUAAPPEAR Cloudy; EDUABILI Negative (Negative); EDUABLOOD 3+ (Negative); EDUACOLOR1 Light/Pale; EDUAGLUCOSE Negative (Negative); EDUAKETONE Negative (Negative); EDUALEUKO 1+ (Negative); EDUANITRATE Negative (Negative); EDUAPH 6.5; EDUAPROTEIN 1+ (Negative); EDUAUROBILI 0.2
== END 2025-04-08 11:31 | disposition home or self-care (01) ==
PROVIDERS: Emergency Provider Nurse Practitioner; PCP Family Medicine
DX: N39.0 Urinary tract infection, site not specified (principal); E03.9 Hypothyroidism, unspecified; N18.30 Chronic kidney disease, stage 3 unspecified; Z87.891 Personal history of nicotine dependence
CPT/HCPCS: 74018; 81003; 87086; 99213; G0463

== ENCOUNTER 2025-08-11 12:35 | Emergency (ER) | payer MEDICARE, SELFPAY ==
[2025-08-11 12:42] VITALS: BP 121/68; PULSE 78; RESP 18; TEMP 36.7; O2SAT 97
--- NOTE | 2025-08-11 12:52 | ED_ITS ---
HPI - URI/Sore Throat General Chief Complaint: Upper Respiratory Infection Stated Complaint: sinus infection Time Seen by Provider: 08/11/25 12:52 Source: patient Mode of arrival: ambulatory Limitations: no limitations History of Present Illness HPI Narrative: 80 yo M presents with c/o fatigue, bodyaches, cough, chest congestion for 1 wk. Intemittent sore throat. Afebrile. Taking mucinex to treat symptoms. Going out of town on vacation soon. Concerned because he's not getting better and has not energy. All systems reviewed and negative except as noted above. Related Data Home Medications ?Medication ?Instructions ?Recorded ?Confirmed ?Last Taken ?Type budesonide 0.5 mg/2 mL suspension 0.5 mg irrigation 05/02/25 Unknown History for nebulization Allergies Allergy/AdvReac Type Severity Reaction Status Date / Time No Known Allergies Allergy Verified 08/11/25 12:43 [facility] Past Medical History Medical History Cataract Enlarged prostate without lower urinary tract symptoms (luts) Seborrheic keratosis Nocturia Deviated nasal septum COVID-19 (~12/21/21) Hernia (~2009) Osteoarthritis of both knees Hypothyroidism Hepatitis C antibody test negative (12/21/16) Benign prostatic hyperplasia with nocturia Hypercholesterolemia Prediabetes Prehypertension Stage 3 chronic kidney disease Surgical History Surgical History H/O cataract removal with insertion of prosthetic lens History of partial knee replacement (~10/24/20) Lt and Rt 07/11/2023 History of appendectomy (~1984) Family History Family History Mother Depression Family history of Parkinson's disease Patient's mother is , Onset Age: 82 Father Patient's father is , Onset Age: 83 Other No family history of cardiovascular disease Social History Social History Social History: Caffeine-daily Smoking packs per day: 0.5 Smoking cigarettes per day: 10.0 Years smoked: 1 Smoking pack-years: 0.50 Smoking status: Never smoker Tobacco type: cigarettes Smoking end date: 10/13/65 Alcohol intake: never Substance use: never Substance use type: does not use Do You Feel Safe in your Home?: Yes Lack of Transportation: No Lack of Food: Never True Current Housing: I Have Housing Concerned About Future Housing: No Difficulty Paying Gas/Electric Bills: No Difficulty Paying for Meds: No Currently Unemployed: No Education: Bachelor's Degree Difficulty w/ Childcare or Family Care: No Living arrangements: with family Spiritual care concerns: No Comments At time of signature, agree with nursing past medical, surgical, social and family history. There is no relevant family history pertinent to the presenting complaint. Exam Narrative: GENERAL: This is a well-nourished, well-developed patient, in no apparent distress. HEAD: normocephalic, atraumatic. EYES: PERRL. Sclera clear/white. Vision is grossly intact. EARS: External ears normal, auditory canals clear and without drainage, TMs normal without perforation. Hearing grossly intact. NOSE: External nose normal with clear nasal drainage THROAT: Mucous membranes moist, no significant swelling, erythema or excudates NECK: Neck supple, non-tender without lymphadenopathy, masses or thyromegaly. CARDIOVASCULAR: Regular rate and rhythm without murmurs, gallops, or rubs. RESPIRATORY: Clear to auscultation. Breath sounds equal bilaterally. No wheezes, rales, or rhonchi. SKIN: warm, Dry, intact with no suspicious lesions or rash, good texture and turgor. NEURO: awake, alert, and oriented to person, place and time. There were no obvious focal neurologic abnormalities. EXTREMITIES: No joint tenderness, effusion, or edema noted. Course Course Level of Care: Express Care Visit Vital Signs Vital signs: Vital Signs Temperature 36.7 C 08/11/25 12:42 Pulse Rate 78 08/11/25 12:42 Respiratory Rate 18 08/11/25 12:42 Blood Pressure 121/68 08/11/25 12:42 Pulse Oximetry 97 08/11/25 12:42 Oxygen Delivery Room Air 08/11/25 12:42 Temperature 36.7 C 08/11/25 12:42 Pulse Rate 78 08/11/25 12:42 Respiratory Rate 18 08/11/25 12:42 Blood Pressure 121/68 08/11/25 12:42 Pulse Oximetry 97 08/11/25 12:42 Oxygen Delivery Room Air 08/11/25 12:42 reviewed MDM - URI/Sore Throat MDM Narrative Medical decision making narrative: Patient alert, nontoxic. Lungs clear to auscultation. Patient offered chest x-ray but he did not feel was necessary. Will treat with antibiotic, Medrol Dosepak for acute bronchitis. Patient agrees with plan of care. Differential Diagnosis Differential diagnosis: Likely upper respiratory infection, sinusitis, viral infection, bronchitis and influenza Discharge Plan Discharge Clinical Impression: Acute bronchitis Qualifiers: Bronchitis organism: unspecified organism Qualified Code(s): J20.9 - Acute bronchitis, unspecified Patient Disposition: Home Condition: Stable Instructions: Antibiotic Form, Acute Bronchitis (ED) Additional Instructions: your COVID, influenza and strep test was negative today. Take medications as prescribed. Drink at least 64 oz of water a day. Place cool mist humidifier in bedroom where you sleep. Follow-up with your primary care physician if symptoms are not improving. Patient Language: Mongolian Prescriptions: New doxycycline hyclate 100 mg capsule 100 mg PO BID 7 Days Qty: 14 0RF benzonatate 200 mg capsule 200 mg PO TID PRN (Reason: cough) Qty: 20 0RF methylprednisolone [Medrol (Keaton)] 4 mg tablets,dose pack See Rx Instructions PO .COMPLEX Qty: 21 0RF Rx Instructions: orally per package directions No Action budesonide 0.5 mg/2 mL suspension for nebulization 0.5 mg irrigation famotidine 20 mg tablet 20 mg PO QHS Qty: 90 3RF (DME) CPAP See Rx Instructions .Route .MEDSUPPLY Qty: 1 0RF Rx Instructions: Resmed AutoPAP 5-15 cm H2O, CPAP mask/filters/tubing and heated humidity. tamsulosin 0.4 mg capsule See Rx Instructions .ROUTE .COMPLEX Qty: 90 3RF Dose Instruction: TAKE 1 CAPSULE BY MOUTH DAILY Rx Instructions: TAKE 1 CAPSULE BY MOUTH DAILY levothyroxine 75 mcg tablet See Rx Instructions .ROUTE .COMPLEX Qty: 90 3RF Dose Instruction: TAKE 1 TABLET BY MOUTH DAILY Rx Instructions: TAKE 1 TABLET BY MOUTH DAILY finasteride 5 mg tablet See Rx Instructions .ROUTE .COMPLEX Qty: 90 1RF Dose Instruction: TAKE 1 TABLET BY MOUTH DAILY Rx Instructions: TAKE 1 TABLET BY MOUTH DAILY lisinopril 10 mg tablet See Rx Instructions .ROUTE .COMPLEX Qty: 90 1RF Dose Instruction: TAKE 1 TABLET BY MOUTH DAILY Rx Instructions: TAKE 1 TABLET BY MOUTH DAILY metformin 500 mg tablet extended release 24 hr 500 mg PO DAILY Qty: 90 1RF Rx Instructions: Take with largest meal Follow-up/Referrals: Del Jones MD [Primary Care Provider, [facility]] Time of Disposition: 13:07
[2025-08-11 13:07] LABS: EDCOVIDSCREEN Negative (Negative)
[2025-08-11 13:08] LABS: EDINFLUASCREEN Negative (Negative); EDINFLUBSCREEN Negative (Negative); EDSTREPNEGPOS1 Negative (Negative)
--- OUTSIDE RECORDS SUMMARY | 2025-08-11 13:10 | XMS_ITS | Clinical Summary ---
Author Organization [facility] Address [address] [place] [address] Care Team Providers Care Appliance Assembler Name Role Phone Isai Almonte MD Primary Care Provider [phone] Source Comments [facility],non-owned Affiliates and Associated Physician Practices is amultiple site organization consisting of ambulatory clinics and hospital sitesin [place], [place], [place] and [place]. This disclosure is being madepursuant to the Care Everywhere program and may not contain all information available regarding this patient. Last updated 18.[facility] [employer] Social History Tobacco Use Types Packs/Day Years Used Date Smoking Tobacco: Never Assessed Sex and Gender Information Value Date Recorded Sex Assigned at Not on file Legal Sex Male 2:49 PM CDT Gender Identity Not on file Sexual Orientation Not on file Plan of Treatment Health Maintenance Due Date Last Done Comments HEPATITIS C SCREENING 01/21/1965 DTAP/TDAP/TD VACCINES (1 - Tdap) 1966 PNEUMOCOCCAL VACCINE 50+ (1 of 1 - PCV) 1997 ZOSTER VACCINE (1 of 2) 1997 Respiratory Syncytial Virus (RSV) Vaccine Pt: or over 60 yrs (1 - 1-dose 75+ series) 2022 DEPRESSION SCREENING 10/13/2024 COVID-19 VACCINE ( - 2023-2 5 season) 2025 INFLUENZA VACCINE (#1) 2025 HEPATITIS B VACCINE Aged Out No longe r eligible based on patient's age to complete this topic HIB VACCINE Aged Out No longer eligi ble based on patient's age to complete this topic HPV VACCINE Aged Out No longer eligi ble based on patient's age to complete this topic MENINGOCOCCAL (Group B) VACC INE SHARED DECISION-MAKING Aged Out No longer eligibl e based on patient's age to complete this topic MENINGOCOCCAL GROUPS A/C/Y/W VACCINE Aged Out No longer eligible b ased on patient's age to complete this topic Insurance [facility] [place] [address] Care Teams Appliance Assembler Relationship Specialty Start Date End Date Isai Almonte MD [address] [place] [address] PCP - General 01/10/21
--- OUTSIDE RECORDS SUMMARY | 2025-08-11 13:10 | XMS_ITS | Encounter Summary ---
Author Organization [facility] Address [address] [place] [address] Care Team Providers Care Annealing Torch Operator Name Role Phone Isai Almonte MD Primary Care Provider [phone] Encounter Details Date Type Department Care Team (Late st Contact Info) Description 01/11/2021 Lab Requisition [facility] [address] [place] [id number] Flo Jauregui MD [address] [place] [address] Social History Tobacco Use Types Packs/Day Years Used Date Smoking Tobacco: Never Assessed Sex and Gender Information Value Date Recorded Sex Assigned at Not on file Legal Sex Male 2:49 PM CDT Gender Identity Not on file Sexual Orientation Not on file documented as of this encounter Plan of Treatment Not on file documented as of this encounter Procedures Procedure Name Priority Date/Time Associated Diagnosis Comments DERMATOPATHOLOGY Routine 01/09/2021 3:33 AM CDT documented in this encounter Results * DERMATOPATHOLOGY (01/09/2021 3:33 AM CDT) Case Report Dermatopathology Report Case: [id number] Authorizing Provider: Flo Jauregui MD Collected: 01/09/2021 03:33 AM Ordering Location: [facility] Received: 01/11/2021 06:29 AM Pathologist: Sparkle Vallecillo MD Specimen: Skin, left nasal supratip 12:25 PM CDT DERMATOPATHOLOGY LABORATORY Final Diagnosis Specimen A. SKIN, left nasal supratip: ACTINIC KERATOSIS (L57.0) (see microscopic description) 12:25 PM CDT DERMATOPATHOLOGY LABORATORY at 1225 CDT Clinical History R/o Rowe's disease 12:25 PM CDT DERMATOPATHOLOGY LABORATORY Gross Description Specimen A: Received is one formalin filled container labeled with the patient's name and designated left nasal supratip. The specimen consists of a shave biopsy measuring 6x6x1 mm. Jar 0. 12:25 PM CDT DERMATOPATHOLOGY LABORATORY Microscopic Description Specimen A. SKIN, left nasal supratip: There is focal parakeratosis. The lower half of the epidermis shows disorderly maturation of keratinocytes with nuclear pleomorphism. Adnexal extension of the lesion is seen. 12:25 PM CDT DERMATOPATHOLOGY LABORATORY Disclaimer An external and internal positive and negative controls are appropriate for the histochemical, immunohistochemical and immunofluorescence stain(s) in this case (if any), except where stated explicitly. The performance characteristics of the stain(s) cited in this report were developed and its performance characteristic determined by the Dermatopathology Laboratory at [facility], directed by Dr. Jose Rogel. These tests need not be, and therefore are not, approved by the [place] Food and Drug Administration. The tests are used for clinical purposes. Billing Codes Specimen Charges Stain Charges 63125 1 12:25 PM CDT DERMATOPATHOLOGY LABORATORY Embedded Images 12:25 PM CDT DERMATOPATHOLOGY LABORATORY Pathology/Cytolo gy TISSUE SPECIMEN FROM SKIN / Unknown 01/09/2021 3:33 AM CDT 01/11/2021 6:29 AM CDT Flo Jauregui MD LAB - PATHOLOGY/CYTOLOGY ORD ERABLES Final Result DERMATOPATHOLOGY LABORATORY [facility] - Department of Dermatology [facility] [address] [place] [address], [address] [phone] documented in this encounter Visit Diagnoses Not on filedocumented in this encounter Care Teams Annealing Torch Operator Relationship Specialty Start Date End Date Isai Almonte MD [address] [place] [address] PCP - General 01/10/21 documented as of this encounter
--- OUTSIDE RECORDS SUMMARY | 2025-08-11 13:10 | XMS_ITS | Clinical Summary ---
Author Organization [facility] [address] [facility] [address] [place] [address] Care Team Providers Care Lawyer Probate Name Role Phone Christine Molina DO Primary Care Provider [phone] Allergies No known active allergies Medications levothyroxine (SYNTHROID) 50 mcg tablet Take 50 mcg by mouth daily 05/18/2021 Active tamsulosin (FLOMAX) 0.4 mg extended release capsule Take 0.4 mg by mouth daily 05/18/2021 Active finasteride (PROSCAR) 5 mg tablet Take 5 mg by mouth daily 03/27/2021 Active Active Problems Problem Noted Date Diagnosed Date PVC (premature ventricular contraction) 05/22/20 21 Exertional dyspnea 05/22/2021 Surgical History Surgery Date Site/Laterality Comments APPENDECTOMY HERNIA REPAIR Medical History Medical History Date Comments Thyroid disease Family History Medical History Relation Name Comments Stroke Father Supraventricular tachycardia Mother Relation Name Status Comments Father (Age 84) Mother (Age 86) Social History Tobacco Use Types Packs/Day Years Used Date Smoking Tobacco: Former Smokeless Tobacco: Never Personal Safety Answer Date Recorded Getting School Help Needed Not on file 12/12 Sex and Gender Information Value Date Recorded Sex Assigned at Not on file Legal Sex Male 3:36 AM MANAGER AP[employer] Gender Identity Not on file Sexual Orientation Not on file Obstetrics History Last Filed Vital Signs Vital Sign Reading Time Taken Comments Blood Pressure 116/82 05/22/2021 3:54 PM CDT Pulse 80 05/22/2021 3:54 PM CDT Temperature - - Respiratory Rate - - Oxygen Saturation 99% 05/22/2021 3:54 PM CDT Inhaled Oxygen Concentration - - Weight 89.8 kg (198 lb) 05/22/2021 3:54 PM CDT Height 180.3 cm (5' 11) 05/22/2021 3:54 PM CDT Body Mass Index 27.62 05/22/2021 3:54 PM CDT Plan of Treatment Not on file Insurance [facility] MEDICARE ADVANTAGE Care Teams Lawyer Probate Relationship Specialty Start Date End Date Christine Molina DO PCP - General Family Medicine 05/16/21
== END 2025-08-11 13:08 | disposition home or self-care (01) ==
PROVIDERS: Emergency Provider Nurse Practitioner Family; PCP Family Medicine
DX: J20.9 Acute bronchitis, unspecified (principal); Z20.822 Contact with and (suspected) exposure to COVID-19; N40.1 Benign prostatic hyperplasia with lower urinary tract symptoms; N18.30 Chronic kidney disease, stage 3 unspecified; E03.9 Hypothyroidism, unspecified; M17.0 Bilateral primary osteoarthritis of knee; E78.00 Pure hypercholesterolemia, unspecified; R73.03 Prediabetes; R03.0 Elevated blood-pressure reading, without diagnosis of hypertension; Z87.891 Personal history of nicotine dependence; Z96.653 Presence of artificial knee joint, bilateral
CPT/HCPCS: 87081; 87426; 87804; 87880; 99213; G0463